=== PATIENT | female | born 1975 | race Caucasian/White ===

== ENCOUNTER 2023-09-02 11:02 | Emergency (ER) | payer OTHER ==
[2023-09-02 11:09] VITALS: BP 174/100; PULSE 69; RESP 18; TEMP 98; BMI 20.9
== END 2023-09-02 13:48 | disposition left against medical advice (07) ==
LOC: JER 11:02
DX: Z53.29 Procedure and treatment not carried out because of patient's decision for other reasons (principal)
CPT/HCPCS: 93005; 93010; 99281-25